=== PATIENT | male | born 1940 | race Caucasian/White ===

== ENCOUNTER 2020-06-05 14:17 | Emergency (ER) | payer BC ==
[~2020-06-05] VITALS: Ht 162.6 cm; Wt 58.1 kg
[2020-06-05 14:27] VITALS: Ht 162.6 cm; Wt 58.1 kg
[2020-06-05 16:22] VITALS: BP 14/70
== END 2020-06-05 16:22 | disposition home or self-care (01) ==
LOC: ED 14:17
DX: R33.9 Retention of urine, unspecified (principal); Z46.6 Encounter for fitting and adjustment of urinary device

== ENCOUNTER 2020-06-06 22:09 | Emergency (ER) | payer BC, OTHER ==
[~2020-06-06] VITALS: Ht 172.7 cm; Wt 72.6 kg
[2020-06-06 22:32] VITALS: Ht 172.7 cm; Wt 72.6 kg
[2020-06-07 01:23] LABS: BASOPHIL % 0.3 % (0-2); PLATELET COUNT 218 x10^3mcL (130-400); RED CELL DISTRIBUTION WIDTH 14.4 % (11.5-14.5)
[2020-06-07 01:53] LABS: CALCIUM 8.9 mg/dL (8.5-10.1); CARBON DIOXIDE 25.4 mmol/L (21-32); CHLORIDE SERUM 104 mmol/L (98-107); CREATININE SERUM 1.4 mg/dL (0.7-1.3); GLUCOSE SERUM 199 mg/dL (74-106); POTASSIUM SERUM 3.7 mmol/L (3.5-5.1); SODIUM SERUM 139 mmol/L (136-145)
[2020-06-07 01:58] LABS: ALKALINE PHOSPHATASE 82 U/L (46-116); ALT/SGPT 78 U/L (16-63); AST/SGOT 45 U/L (15-37); BILIRUBIN TOTAL 0.3 mg/dL (0.20-1.00)
[2020-06-07 01:59] LABS: ALBUMIN 3.2 g/dL (3.4-5.0)
[2020-06-07 02:30] VITALS: BP 135/76
== END 2020-06-07 02:30 | disposition home or self-care (01) ==
LOC: ED 22:09
PROVIDERS: Emergency Medicine
DX: R33.9 Retention of urine, unspecified (principal)
CPT/HCPCS: J2270